=== PATIENT | male | born 1975 | race African-American/Black ===

== ENCOUNTER 2022-08-23 13:25 | Emergency (ER) | payer OTHER ==
[2022-08-23] MEDS ORDERED: KETOROLAC TROMETHAMINE 15 MG/ML VIAL IM ONE (13:37)
[2022-08-23] MEDS ORDERED: KETOROLAC TROMETHAMINE 15 MG/ML VIAL ONE (13:44)
[2022-08-23 13:49] VITALS: BP 170/110; PULSE 96; RESP 20; TEMP 98.6; BMI 29.5
== END 2022-08-23 14:25 | disposition home or self-care (01) ==
LOC: FER 13:25
PROC: 3E0233Z Introduction of Anti-inflammatory into Muscle, Percutaneous Approach (ICD-10-PCS; principal; 2022-08-23)
DX: S22.41XA Multiple fractures of ribs, right side, initial encounter for closed fracture (principal); W24.0XXA Contact with lifting devices, not elsewhere classified, initial encounter; W17.89XA Other fall from one level to another, initial encounter
CPT/HCPCS: 71046-TC-FY; 99284-25